=== PATIENT | female | born 1980 | race Caucasian/White ===

== ENCOUNTER → 2019-11-06 | Outpatient (CLI) | payer OTHER | END | disposition home or self-care (01) | LOC: MA 12:55 | PROC: BH02ZZZ Plain Radiography of Bilateral Breasts (ICD-10-PCS; principal; 2019-11-06) | DX: Z12.31 Encounter for screening mammogram for malignant neoplasm of breast (principal) | CPT/HCPCS: 77067 ==

== ENCOUNTER → 2019-11-25 | Outpatient (CLI) | payer OTHER | END | disposition home or self-care (01) | LOC: MA 14:00 | PROC: BH41ZZZ Ultrasonography of Left Breast (ICD-10-PCS; principal; 2019-11-25) | PROC: BH01ZZZ Plain Radiography of Left Breast (ICD-10-PCS; 2019-11-25) | DX: N64.89 Other specified disorders of breast (principal) | CPT/HCPCS: 76642; 77065 ==